=== PATIENT | male | born 1995 | race Two or more races ===

== ENCOUNTER 2019-05-11 17:35 | Emergency (ER) | payer OTHER ==
[2019-05-11] MEDS ORDERED: IBUPROFEN 600 MG TABLET PO ONE (18:41)
--- NOTE | 2019-05-11 18:55 | ER Document Report ---
HPI - HPI Time Seen by Provider: 05/11/19 18:39 Context: Patient is a 24-year-old male who presents to the emergency department with a chief complaint of left foot pain. Patient was moving a washer out of his truck and ended up falling on his left lateral foot. Patient has not been able to w alk on the foot since. This happened around 1630 this evening. - ROS Systems Reviewed and Negative: Yes All other systems reviewed and negative - MUSCULOSKELETAL Musculoskeletal: REPORTS: Extremity pain - left lateral foot, Swelling - left foot - DERM Skin Color: Normal Skin Problems: None Past Medical History - General Information source: Patient - Social History Smoking Status: Unknown if Ever Smoked Family History: Reviewed & Not Pertinent Vertical Provider Document - CONSTITUTIONAL Agree With Documented VS: Yes Exam Limitations: No Limitations General Appearance: No Apparent Distress - HEENT HEENT: Atraumatic, Normocephalic, PERRLA - RESPIRATORY Respiratory: No Respiratory Distress - CARDIOVASCULAR Cardiovascular: Regular Rate, Regular Rhythm Pulses: Normal: Posterior tibial, Dorsalis pedis - MUSCULOSKELETAL/EXTREMETIES Musculoskeletal/Extremeties: Tender - left lateral foot at 4th and 5th metacarpal areas., Edema - right lateral foot, Eccymosis - left lateral foot. negative: FROM - decrease ROM to right foot. - NEURO Level of Consciousness: Awake, Alert, Appropriate Motor/Sensory: No Sensory Deficit - DERM Integumentary: Warm, Dry, No Rash Course - Vital Signs Vital signs: Temp Pulse Resp BP Pulse Ox 98.3 F 85 18 162/96 H 98 05/11/19 18:17 05/11/19 18:17 05/11/19 18:17 05/11/19 18:17 05/11/19 18:17 Discharge - Discharge Clinical Impression: Contusion of left foot Qualifiers: Encounter type: initial encounter Qualified Code(s): S90.32XA - Contusion of left foot, initial encounter Condition: Stable Disposition: HOME, SELF-CARE Additional Instructions: You are seen today in the emergency department for foot pain after a washer fell on top of your foot. [place]. Please rest, apply ice, elevate your foot, and take ibuprofen 600 mg every 6 hours for your pain. Please use crutches and the [place] wrap to help with comfort. Forms: Return to Work Referrals: [facility] [Provider Group] - Follow up tomorrow
--- NOTE | 2019-05-11 19:17 | RADIOLOGY REPORT (SQ) ---
EXAM DESCRIPTION: FOOT LEFT COMPLETE COMPLETED DATE/TIME: 05/11/2019 6:54 pm REASON FOR STUDY: washer fell on foot COMPARISON: None. NUMBER OF VIEWS: Three views. TECHNIQUE: AP, lateral and oblique radiographic images acquired of the left foot. LIMITATIONS: None. FINDINGS: MINERALIZATION: Normal. BONES: No acute fracture or dislocation. No worrisome bone lesions. JOINTS: No effusions. SOFT TISSUES: No soft tissue swelling. No foreign body. OTHER: No other significant finding. IMPRESSION: No obvious acute osseous abnormality of the left foot. TECHNICAL DOCUMENTATION: JOB ID: [id number] 2010 [employer]- All Rights Reserved Reading location - IP/workstation name: [email or web address]
[2019-05-11 19:46] VITALS: BP 143/89
== END 2019-05-11 20:21 | disposition home or self-care (01) ==
LOC: ER 17:35
DX: S90.32XA Contusion of left foot, initial encounter (principal); M79.672 Pain in left foot; W19.XXXA Unspecified fall, initial encounter
CPT/HCPCS: 99283